=== PATIENT | male | born 2000 | race Caucasian/White ===

== ENCOUNTER 2025-06-15 06:18 | Outpatient (REF) | payer OTHER, SELFPAY ==
--- NOTE | ~2025-06-15 | US_ITS ---
EXAMINATION: US ABDOMEN LIMITED CLINICAL INFORMATION: Periumbilical pain, rule out hernia.. COMPARISON: None available. TECHNIQUE: Real-time imaging of the periumbilical abdominal wall was performed in the region of concern. FINDINGS: There is no hernia present. No abnormal cyst fluid collection, cystic abnormality, mass, or abnormal lymph nodes. Only normal structures are visualized. US/US abdomen limited IMPRESSION: No evidence of periumbilical hernia or other abnormality. Electronically signed by: Heri Mirza MD 06/15/2025 03:24 PM EDT
== END 2025-06-15 06:19 | disposition home or self-care (01) ==
LOC: HO.UMASIMG 06:18
PROVIDERS: Visit Provider Physician Assistant
DX: R10.33 Periumbilical pain (principal)
CPT/HCPCS: 76705

== ENCOUNTER → 2025-06-15 14:14 | Outpatient (BNV) | payer OTHER, SELFPAY | PROVIDERS: Visit Provider Radiology Diagnostic Radiology | DX: R10.33 Periumbilical pain (principal) | CPT/HCPCS: 76705 ==